=== PATIENT | female | born 1995 | race Caucasian/White ===

== ENCOUNTER 2019-02-21 10:10 | Emergency (ER) | payer MEDICAID ==
[~2019-02-21] VITALS: Ht 160 cm; Wt 46.7 kg
[2019-02-21] MEDS ORDERED: PNV1TABL25 PO (10:21)
[2019-02-21] MEDS ORDERED: ASPI-630 PO (10:21)
[2019-02-21 10:28] LABS: BILIRUBIN,URINE NEGATIVE (NEG); CLARITY,URINE CLEAR; COLOR,URINE YELLOW; NITRITE,URINE NEGATIVE (NEG); PROTEIN,URINE NEGATIVE (NEG-TRACE); UROBILINOGEN,URINE 0.2 mg/dL (0.2 mg/dL)
[2019-02-21 10:42] LABS: AMORPHOUS SEDIMENT,UR PRESENT /HPF; BACTERIA,URINE FEW /HPF (0-FEW); RBC,URINE OCC /HPF (0-2); SQUAMOUS EPITHELIAL CELL,UR MOD /LPF; WBC,URINE OCC /HPF (0-4)
--- NOTE | 2019-02-21 11:31 | RAD ---
STUDY: Obstetrical ultrasound-transvaginal INDICATION: Vaginal bleeding. Known . COMPARISON: None. TECHNIQUE: Real-time grayscale and Doppler imaging of the pelvis utilizing both transabdominal and transvaginal technique. FINDINGS: Intrauterine gestational sac measuring 1.8 x 0.65 x 1.31 cm with a mean sac diameter measured at 1.56 cm. Estimated gestational age based on this measurement of 6 weeks 3 days. A yolk sac is present measuring 0.39 cm. A discrete pole is not seen at this time. No perigestational hemorrhage noted. The uterus itself measures 10 x 4.9 x 5 cm. Unremarkable uterine parenchyma. The right ovary measures 3 x 1.8 x 1.9 cm. The left ovary measures 3.1 x 1.3 x 2.1 cm. Normal Doppler flow maintained to both ovaries. Trace free fluid seen within the deep pelvis. The fluid appears simple in echotexture. IMPRESSION: 1. Intrauterine gestational sac with a mean sac diameter corresponding to an estimate a gestational age of 6 weeks 3 days. A yolk sac is identified but a pole is not seen at this time. This is not an unexpected finding given the measured dimensions of the gestational sac however given patient's symptoms, short-term follow-up such as in 7-14 days is recommended to document expected evolution of a viable . 2. Maintained Doppler flow to both ovaries. 3. Trace simple appearing free fluid within the deep pelvis. Electronically signed by: JACK CERNA MD (02/21/2019 11:28 AM) [facility]
--- NOTE | 2019-02-21 11:34 | PHYS DOC ---
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 She states he is , her LMP was 01/08/19 and her EDC is 10/15/19. She denies any pelvic pain, back pain, or irregular vaginal discharge prior to the onset of spotting. She denies any recent trauma or intercourse. Pt denies any pain at this time. Review of Systems Review of Systems Constitutional: Denies fever or chills [] Eyes: Denies redness, or eye pain [] HENT: Denies nasal congestion or sore throat [] Respiratory: Denies cough or shortness of breath [] Cardiovascular: No additional information not addressed in HPI [] GI: Denies abdominal pain, nausea, vomiting, or diarrhea [] : Denies dysuria or hematuria; see HPI [] Musculoskeletal: Denies back pain or joint pain [] Integument: Denies rash or skin lesions [] Neurologic: Denies headache, focal weakness or sensory changes [] Complete systems were reviewed and found to be within normal limits, except as documented in this note. Allergies Allergies Allergies Coded Allergies Type Severity Reaction Last Updated Verified Sulfa (Sulfonamide Antibiotics) Allergy Intermediate hives 02/21/19 Yes Physical Exam Physical Exam Constitutional: Well developed, well nourished, no acute distress, non-toxic appearance. [] HENT: Normocephalic, atraumatic, bilateral external ears normal, oropharynx moist, no oral exudates, nose normal. [] Eyes: PERRLA, EOMI, conjunctiva normal, no discharge. [] Neck: Normal range of motion, no tenderness, supple, no stridor. [] Cardiovascular:Heart rate regular rhythm, no murmur [] Lungs & Thorax: Bilateral breath sounds clear to auscultation [] Abdomen: Bowel sounds normal, soft, no tenderness, no masses, no pulsatile masses. [] Skin: Warm, dry, no erythema, no rash. [] Back: No tenderness, no CVA tenderness. [] Extremities: No tenderness, no cyanosis, no clubbing, ROM intact, no edema. [] Neurologic: Alert and oriented X 3, normal motor function, normal sensory function, no focal deficits noted. [] Psychologic: Affect normal, judgement normal, mood normal. [] Current Patient Data Vital Signs Vital Signs Date Time Temp Pulse Resp B/P (MAP) Pulse Ox O2 Delivery O2 Flow Rate FiO2 02/21/19 10:10 98.2 70 16 101/55 (70) 100 Room Air 98.2 Lab Values Laboratory Tests Test 02/21/19 10:18 02/21/19 11:30 Urine Collection Type Unknown Urine Color Yellow Urine Clarity Clear Urine pH 7.0 Urine Specific [place] 1.015 Urine Protein Negative mg/dL (NEG-TRACE) Urine Glucose (UA) Negative mg/dL (NEG) Urine Ketones (Stick) 15 mg/dL (NEG) Urine Blood Negative (NEG) Urine Nitrite Negative (NEG) Urine Bilirubin Negative (NEG) Urine Urobilinogen Dipstick 0.2 mg/dL (0.2 mg/dL) Urine Leukocyte Esterase Negative (NEG) Urine RBC Occ /HPF (0-2) Urine WBC Occ /HPF (0-4) Urine Squamous Epithelial Cells Mod /LPF Urine Amorphous Sediment Present /HPF Urine Bacteria Few /HPF (0-FEW) Urine Mucus Marked /LPF White Blood Count 8.3 x10^3/uL (4.0-11.0) Red Blood Count 4.50 x10^6/uL (3.50-5.40) Hemoglobin 13.6 g/dL (12.0-15.5) Hematocrit 41.0 % (36.0-47.0) Mean Corpuscular Volume 91 fL (79-100) Mean Corpuscular Hemoglobin 30 pg (25-35) Mean Corpuscular Hemoglobin Concent 33 g/dL (31-37) Red Cell Distribution Width 13.3 % (11.5-14.5) Platelet Count 175 x10^3/uL (140-400) Neutrophils (%) (Auto) 72 % (31-73) Lymphocytes (%) (Auto) 21 % (24-48) L Monocytes (%) (Auto) 5 % (0-9) Eosinophils (%) (Auto) 2 % (0-3) Basophils (%) (Auto) 1 % (0-3) Neutrophils # (Auto) 5.9 x10^3/uL (1.8-7.7) Lymphocytes # (Auto) 1.7 x10^3/uL (1.0-4.8) Monocytes # (Auto) 0.4 x10^3/uL (0.0-1.1) Eosinophils # (Auto) 0.2 x10^3/uL (0.0-0.7) Basophils # (Auto) 0.0 x10^3/uL (0.0-0.2) Maternal Serum HCG Beta Subunit 85527 mIU/mL (0-5) H Laboratory Tests 02/21/19 11:30 EKG EKG [] Radiology/Procedures Radiology/Procedures PROCEDURE: OB TRANSVAG STUDY: Obstetrical ultrasound-transvaginal INDICATION: Vaginal bleeding. Known . COMPARISON: None. TECHNIQUE: Real-time grayscale and Doppler imaging of the pelvis utilizing both transabdominal and transvaginal technique. FINDINGS: Intrauterine gestational sac measuring 1.8 x 0.65 x 1.31 cm with a mean sac diameter measured at 1.56 cm. Estimated gestational age based on this measurement of 6 weeks 3 days. A yolk sac is present measuring 0.39 cm. A discrete pole is not seen at this time. No perigestational hemorrhage noted. The uterus itself measures 10 x 4.9 x 5 cm. Unremarkable uterine parenchyma. The right ovary measures 3 x 1.8 x 1.9 cm. The left ovary measures 3.1 x 1.3 x 2.1 cm. Normal Doppler flow maintained to both ovaries. Trace free fluid seen within the deep pelvis. The fluid appears simple in echotexture. IMPRESSION: 1. Intrauterine gestational sac with a mean sac diameter corresponding to an estimate a gestational age of 6 weeks 3 days. A yolk sac is identified but a pole is not seen at this time. This is not an unexpected finding given the measured dimensions of the gestational sac however given patient's symptoms, short-term follow-up such as in 7-14 days is recommended to document expected evolution of a viable . 2. Maintained Doppler flow to both ovaries. 3. Trace simple appearing free fluid within the deep pelvis.[] Course & Med Decision Making Course & Med Decision Making Pertinent Labs and Imaging studies reviewed. (See chart for details) dx: threatened miscarriage, vaginal bleeding in early . PT's blood type [place] O positive, [place] [address] U/S revealed: 1. Intrauterine gestational sac with a mean sac diameter co rresponding to an estimate a gestational age of 6 weeks 3 days. A yolk sac is identified but a pole is not seen at this time. This is not an unexpected finding given the measured dimensions of the gestational sac however given patient's symptoms, short-term follow-up such as in 7-14 days is recommended to document expected evolution of a viable . 2. Maintained Doppler flow to both ovaries. 3. Trace simple appearing free fluid within the deep pelvis.[] []Follow up with Dr. Alvarez on Saturday for repeat HCG level. pelvic rest until follow up. Return to the ER if symptoms worsen. Patient verbalized an understanding of home care, medications, follow-up, and return to ED instructions and was in agreement with the plan of care. Dragon Disclaimer Dragon Disclaimer This electronic medical record was generated, in whole or in part, using a voice recognition dictation system. Departure Departure Impression: Primary Impression: Threatened in first trimester Disposition: 01 HOME, SELF-CARE Condition: STABLE Referrals: KINJAL ALVAREZ Jr, MD Patient Instructions: Threatened Miscarriage, [id number], Vaginal Bleeding During , First Trimester Additional Instructions: Pelvic rest until follow-up with Dr. Alvarez's office. Schedule an appointment with his office in 48 hours to have your HCG level rechecked, it [place] [address] in the ER today. Return to the ER if symptoms worsen. GEE GARNICA APRN Feb 21, 2019 11:34
[2019-02-21 11:58] LABS: BASO % 1 % (0-3); EOS # 0.2 x10^3/uL (0.0-0.7); EOS % 2 % (0-3); HEMOGLOBIN 13.6 g/dL (12.0-15.5); LYMPH # 1.7 x10^3/uL (1.0-4.8); LYMPH % 21 % (24-48); MEAN CORPUSCULAR HEMOGLOBIN 30 pg (25-35); MEAN CORPUSCULAR HGB CONC 33 g/dL (31-37); MEAN CORPUSCULAR VOLUME 91 fL (79-100); MONO # 0.4 x10^3/uL (0.0-1.1); MONO % 5 % (0-9); NEUT # 5.9 x10^3/uL (1.8-7.7); NEUT % 72 % (31-73); PLATELET COUNT 175 x10^3/uL (140-400); RED CELL DISTRIBUTION WIDTH 13.3 % (11.5-14.5); WHITE BLOOD COUNT 8.3 x10^3/uL (4.0-11.0)
[2019-02-21 12:59] VITALS: BP 90/50
== END 2019-02-21 13:04 | disposition home or self-care (01) ==
LOC: ER 10:10
DX: O20.0 Threatened abortion (principal); Z86.73 Personal history of transient ischemic attack (TIA), and cerebral infarction without residual deficits; Z3A.01 Less than 8 weeks gestation of pregnancy
CPT/HCPCS: 36415; 76817; 81001; 84702; 85025; 86900; 86901; 99285-25

== ENCOUNTER → 2019-05-29 | Outpatient (CLI) | payer MEDICAID ==
[~2019-05-29] MED LIST: ASPI-630 PO; PNV1TABL25 PO
--- NOTE | 2019-05-29 09:01 | RAD ---
Clinical indications: Size and date discrepancy. Findings: A single intrauterine fetus is seen in variable position. heart rate is 147 beats per minute. BPD is 4.4 cm which equals 19 weeks 2 days. HC is 17.0 cm which equals 19 weeks 4 days. AC is 14.2 cm which equals 19 weeks 4 days. FL is 3.1 cm which equals 19 weeks 4 days. Average gestational age by ultrasound is 19 weeks 4 days +/- 12 days with an EDC of October 19, 2019. EDC by LMP is October 15, 2019. EDC by previous sonogram dated February 21, 2019 is October 14, 2019. Therefore, there has been normal interval growth. Estimated weight is 0 lbs and 11 oz. A four-chamber heart and three-vessel cord are identified. stomach and urinary bladder are identified. kidneys are unremarkable. Cord insertion site is unremarkable. The intracranial structures and spine are morphologically normal in appearance. The ventricular trigone measurement is 5.6 mm. Cisterna magna measurement is 5.6 mm. Four extremities are identified. GONZALEZ using the four quadrant method is 12.2 cm. Cervical length is 4.2 cm. A grade 0 posterior placenta is seen. No placenta previa and no placenta abruptio is identified. The maternal ovaries are not visualized. Impression: Single IUP with gestational age of 19 weeks 4 days. Electronically signed by: Ector Garcia MD (05/29/2019 8:58 AM) [facility]
== END | disposition home or self-care (01) ==
LOC: US 06:22
PROVIDERS: ATTEND Obstetrics & Gynecology
DX: O26.842 Uterine size-date discrepancy, second trimester (principal); Z3A.19 19 weeks gestation of pregnancy
CPT/HCPCS: 76805

== ENCOUNTER 2019-06-27 15:33 | Observation (INO) | payer MEDICAID ==
[~2019-06-27] VITALS: Ht 160 cm; Wt 51.7 kg
[2019-06-27] MEDS ORDERED: IV RINGERS,LACTATED 1000ML 1,000 ML IV SCH (15:39)
[2019-06-27 15:55] LABS: BILIRUBIN,URINE NEGATIVE (NEG); CLARITY,URINE CLOUDY; COLOR,URINE YELLOW; NITRITE,URINE NEGATIVE (NEG); PROTEIN,URINE NEGATIVE (NEG-TRACE); UROBILINOGEN,URINE 0.2 mg/dL (0.2 mg/dL)
[2019-06-27 16:03] LABS: SQUAMOUS EPITHELIAL CELL,UR MOD /LPF
[2019-06-27 16:04] LABS: BACTERIA,URINE MODERATE /HPF (0-FEW)
== END 2019-06-27 17:11 | disposition home or self-care (01) ==
LOC: 3 SO LND 15:33
PROVIDERS: ADMIT Obstetrics & Gynecology; ATTEND Obstetrics & Gynecology
DX: O26.892 Other specified pregnancy related conditions, second trimester (principal); R10.9 Unspecified abdominal pain; N89.8 Other specified noninflammatory disorders of vagina; Z3A.24 24 weeks gestation of pregnancy
CPT/HCPCS: 81001; 87086; G0378; G0379

== ENCOUNTER 2019-07-06 08:53 | Emergency (ER) | payer MEDICAID ==
[~2019-07-06] VITALS: Ht 160 cm; Wt 52.0 kg
--- NOTE | 2019-07-06 09:06 | PHYS DOC ---
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 Patient states she was waking on parking lot of her neighborhood and slipped on ice and had a fall and landed on her right side without loss of consciousness or head injury. Patient complaining of right hip pain without abdominal pain, vaginal bleeding, nausea and vomiting, focal neuro deficit. Patient was able to ambulate without problem and rated her pain 8/10 and doesn't want to have pain medication. Review of Systems Review of Systems Constitutional: Denies fever or chills [] Eyes: Denies change in visual acuity, redness, or eye pain [] HENT: Denies nasal congestion or sore throat [] Respiratory: Denies cough or shortness of breath [] Cardiovascular: No additional information not addressed in HPI [] GI: Denies abdominal pain, nausea, vomiting, bloody stools or diarrhea [] : Denies dysuria or hematuria [] Musculoskeletal: Denies back pain, reports joint pain [] Integument: Denies rash or skin lesions [] Neurologic: Denies headache, focal weakness or sensory changes [] Endocrine: Denies polyuria or polydipsia [] All other systems were reviewed and found to be within normal limits, except as documented in this note. Allergies Allergies Allergies Coded Allergies Type Severity Reaction Last Updated Verified Sulfa (Sulfonamide Antibiotics) Allergy Intermediate hives 07/06/19 Yes Physical Exam Physical Exam Constitutional: Well developed, well nourished, mild distress, non-toxic appearance. [] HENT: Normocephalic, atraumatic. Eyes: PERRLA, EOMI, conjunctiva normal, no discharge. [] Neck: Normal range of motion, no tenderness, supple, no stridor. [] Cardiovascular:Heart rate regular rhythm, no murmur [] Lungs & Thorax: Bilateral breath sounds clear to auscultation [] Abdomen: Gravid abdomen, tenderness or contusion, bowel sounds normal, soft, no masses, no pulsatile masses. [] Skin: Warm, dry, no erythema, no rash. [] Back: No tenderness, no CVA tenderness. [] Extremities: Right hip without sign of injury: Normal range of motion, no neurovascular deficit no edema. [] Neurologic: Alert and oriented X 3, no focal deficits noted. [] Psychologic: Affect normal, judgement normal, mood normal. [] Current Patient Data Vital Signs Vital Signs Date Time Temp Pulse Resp B/P (MAP) Pulse Ox O2 Delivery O2 Flow Rate FiO2 07/06/19 10:16 74 18 98 07/06/19 08:53 98.4 105/65 (78) Room Air 98.4 EKG EKG [] Radiology/Procedures Radiology/Procedures [facility] [address] [place] [address] IMAGING REPORT Signed PATIENT: LYNN CROUCH LACCOUNT: [id number] : 1995 LOCATION: ER AGE: 24 SEX: F EXAM STATUS: REG ER ORD. PHYSICIAN: NANCY VILLALPANDO MD REASON: fall on ice, 25 weeks PROCEDURE: OB LIMITED EXAM: Obstetrics sonogram. HISTORY: Fall. TECHNIQUE: Sonographic imaging of a gravid uterus was performed. COMPARISON: 05/29/2019. FINDINGS: There is a single intrauterine fetus in breech presentation with a normal heart rate of 153 bpm. The cervix is closed and measures 4.5 cm in length. There is a posterior grade 1 placenta without evidence of placenta previa or placental abruption. The amniotic fluid index is grossly normal. The biparietal diameter is 5.81 cm, corresponding with 23 weeks and 6 days. The head circumference is 22.35 cm, corresponding with 24 weeks and 3 days. The abdominal circumference is 21.08 cm, corresponding with 25 weeks and 4 days. The femoral length is 4.68 cm, corresponding with 25 weeks and 4 days. Note is made that the biparietal diameter is overestimated on the initial measurement to correspond with a gestational age of 27 weeks and 0 days. This is remeasured to correspond with a gestational age of 23 weeks and 6 days. The estimated gestational age patient combined ultrasound measurements is 24 weeks and 6 days and the estimated weight is 803 g. This corresponds with the 46th percentile for gestational age of 25 weeks and 4 days based on LMP. The estimated due date is 10/20/2019. IMPRESSION: Single intrauterine fetus in breech presentation with a normal heart rate and gestational age based on ultrasound measurements of 24 weeks and 6 days. The anatomy is not formally assessed on this exam. Electronically signed by: Umm Mota MD (07/06/2019 9:43 AM) [facility] [place], [place] DICTATED and SIGNED BY: UMM MOTA MD DATE: 07/06/19 0943 Course & Med Decision Making Course & Med Decision Making Pertinent Imaging studies reviewed. (See chart for details) Evaluation of patient in ER showed 24-year-old female patient at 25 weeks of gestation with a fall and injury to right hip. Patient had unremarkable physical exam. OB ultrasound was unremarkable. Patient didn't want to have pain medica tion in ER. Plan to send patient to L&D for NST. I've spoken with the patient and/or caregivers. I've explained the patient's condition, diagnosis and treatment plan based on information available to me at this time. I've answered the patient's and/or caregivers questions and addressed any concerns. The patient and/or caregivers have a good understanding the billy ent's diagnosis, condition and treatment plan as can be expected at this point. Vital signs have been stabilized. The patient's condition is stable for discharge from the emergency department. The patient will pursue further outpatient evaluation with her primary care provider or other designated consulting physician as outlined in the discharge instructions. Patient and/or caregivers are agreeable to this plan of care and follow-up instructions have been explained in detail. The patient and/or caregivers have received these instructions in written format and expressed understanding of these discharge instructions. The patient and her caregivers are aware that if any significant change in condition or worsening of symptoms should prompt him to immediately return to this of the closest emergency department. If an emergent department is not readily available I would encourage him to call 911. Jcarlos Disclaimer Nirmalon Disclaimer This electronic medical record was generated, in whole or in part, using a voice recognition dictation system. Departure Departure Impression: Primary Impression: Fall due to ice or snow Additional Impressions: Currently Hip pain Disposition: HOME, SELF-CARE (at 1010) Condition: STABLE Referrals: NO PCP (PCP) Patient Instructions: ABCs of , Fall Prevention and Home Safety, Hip Pain Additional Instructions: Drink plenty of liquids Follow-up with your [facility] physician after discharging from ER, we will send you to L&D floor Return to ER if not getting better Take [id number] Tylenol as needed for pain Problem Qualifiers Primary Impression: Fall due to ice or snow Encounter type: initial encounter Qualified Codes: W00.9XXA - Unspecified fall due to ice and snow, initial encounter Additional Impressions: Currently Weeks of gestation: 25 weeks Qualified Codes: Z3A.25 - 25 weeks gestation of Hip pain Laterality: right Qualified Codes: M25.551 - Pain in right hip NANCY VILLALPANDO MD Jul 06, 2019 09:06
--- NOTE | 2019-07-06 09:46 | RAD ---
EXAM: Obstetrics sonogram. HISTORY: Fall. TECHNIQUE: Sonographic imaging of a gravid uterus was performed. COMPARISON: 05/29/2019. FINDINGS: There is a single intrauterine fetus in breech presentation with a normal heart rate of 153 bpm. The cervix is closed and measures 4.5 cm in length. There is a posterior grade 1 placenta without evidence of placenta previa or placental abruption. The amniotic fluid index is grossly normal. The biparietal diameter is 5.81 cm, corresponding with 23 weeks and 6 days. The head circumference is 22.35 cm, corresponding with 24 weeks and 3 days. The abdominal circumference is 21.08 cm, corresponding with 25 weeks and 4 days. The femoral length is 4.68 cm, corresponding with 25 weeks and 4 days. Note is made that the biparietal diameter is overestimated on the initial measurement to correspond with a gestational age of 27 weeks and 0 days. This is remeasured to correspond with a gestational age of 23 weeks and 6 days. The estimated gestational age patient combined ultrasound measurements is 24 weeks and 6 days and the estimated weight is 803 g. This corresponds with the 46th percentile for gestational age of 25 weeks and 4 days based on LMP. The estimated due date is 10/20/2019. IMPRESSION: Single intrauterine fetus in breech presentation with a normal heart rate and gestational age based on ultrasound measurements of 24 weeks and 6 days. The anatomy is not formally assessed on this exam. Electronically signed by: Umm Mota MD (07/06/2019 9:43 AM) [facility] [place]
[2019-07-06 10:16] VITALS: BP 99/56
[2019-07-06] MEDS ORDERED: IV RINGERS,LACTATED 1000ML 1,000 ML IV PRN (10:30)
== END 2019-07-06 10:16 | disposition home or self-care (01) ==
LOC: ER 08:53 → 3 SO LND 10:16 → UNDOADMOB 10:16
DX: O99.89 Other specified diseases and conditions complicating pregnancy, childbirth and the puerperium (principal); M25.551 Pain in right hip; G89.11 Acute pain due to trauma; Z86.73 Personal history of transient ischemic attack (TIA), and cerebral infarction without residual deficits; Z3A.25 25 weeks gestation of pregnancy; Z88.2 Allergy status to sulfonamides; W00.9XXA Unspecified fall due to ice and snow, initial encounter; Y93.89 Activity, other specified; Y92.89 Other specified places as the place of occurrence of the external cause; Y99.8 Other external cause status
CPT/HCPCS: 76815; 99284-25

== ENCOUNTER 2019-07-25 12:58 | Observation (INO) | payer MEDICAID ==
[2019-07-25] MEDS ORDERED: IV RINGERS,LACTATED 1000ML 1,000 ML IV SCH (13:06)
[2019-07-25] MEDS ORDERED: ONDANSETRON PF 4 MG/2 ML VIAL. IV PRN (13:15)
[2019-07-25] MEDS ORDERED: ACETAMINOPHEN 325 MG TABLET. PO PRN (13:15)
[2019-07-25 13:48] LABS: BILIRUBIN,URINE NEGATIVE (NEG); CLARITY,URINE CLEAR; COLOR,URINE YELLOW; NITRITE,URINE NEGATIVE (NEG); PH,URINE 7.5; PROTEIN,URINE NEGATIVE (NEG-TRACE); UROBILINOGEN,URINE 0.2 mg/dL (0.2 mg/dL)
[2019-07-25 13:55] LABS: BARBITURATES NEG (NEG); BENZODIAZEPINES NEG (NEG); CANNABINOIDS NEG (NEG); COCAINE NEG (NEG); METHADONE NEG (NEG); OPIATES NEG (NEG); PHENCYCLIDINE NEG (NEG)
[2019-07-25 14:03] LABS: AMPHETAMINE/METHAMPHETAMINE NEG (NEG)
[2019-07-25 14:16] LABS: BACTERIA,URINE FEW /HPF (0-FEW); RBC,URINE 0 /HPF (0-2); SQUAMOUS EPITHELIAL CELL,UR FEW /LPF; WBC,URINE OCC /HPF (0-4)
== END 2019-07-25 15:30 | disposition home or self-care (01) ==
LOC: 3 SO LND 12:58
PROVIDERS: ADMIT Obstetrics & Gynecology; ATTEND Obstetrics & Gynecology
DX: O62.9 Abnormality of forces of labor, unspecified (principal); Z3A.27 27 weeks gestation of pregnancy
CPT/HCPCS: 80307; 81001; G0378; G0379

== ENCOUNTER 2019-08-19 16:46 | Observation (INO) | payer MEDICAID ==
[2019-08-19] MEDS ORDERED: IV RINGERS,LACTATED 1000ML 1,000 ML IV PRN (17:00)
[2019-08-19 17:19] LABS: BILIRUBIN,URINE NEGATIVE (NEG); CLARITY,URINE CLEAR; COLOR,URINE YELLOW; NITRITE,URINE NEGATIVE (NEG); PH,URINE 5.5 (<5.0-8.0); PROTEIN,URINE NEGATIVE (NEG-TRACE)
[2019-08-19 17:25] LABS: BACTERIA,URINE FEW /HPF (0-FEW); RBC,URINE OCC /HPF (0-2); SQUAMOUS EPITHELIAL CELL,UR FEW /LPF
== END 2019-08-19 18:01 | disposition home or self-care (01) ==
LOC: 3 SO LND 16:46
PROVIDERS: ADMIT Obstetrics & Gynecology; ATTEND Obstetrics & Gynecology
DX: O26.893 Other specified pregnancy related conditions, third trimester (principal); R10.2 Pelvic and perineal pain; Z3A.31 31 weeks gestation of pregnancy
CPT/HCPCS: 81001; G0378; G0379

== ENCOUNTER 2019-09-04 19:01 | Observation (INO) | payer MEDICAID ==
[2019-09-04 19:27] LABS: BILIRUBIN,URINE NEGATIVE (NEG); CLARITY,URINE CLEAR; COLOR,URINE YELLOW; NITRITE,URINE NEGATIVE (NEG); PROTEIN,URINE NEGATIVE (NEG-TRACE)
[2019-09-04] MEDS ORDERED: IV RINGERS,LACTATED 1000ML 1,000 ML IV SCH (19:30)
[2019-09-04 19:35] LABS: AMPHETAMINE/METHAMPHETAMINE NEG (NEG); BARBITURATES NEG (NEG); BENZODIAZEPINES NEG (NEG); CANNABINOIDS NEG (NEG); COCAINE NEG (NEG); METHADONE NEG (NEG); OPIATES NEG (NEG); PHENCYCLIDINE NEG (NEG)
[2019-09-04 19:39] LABS: SQUAMOUS EPITHELIAL CELL,UR FEW /LPF
[2019-09-04 19:40] LABS: AMORPHOUS SEDIMENT,UR PRESENT /HPF; BACTERIA,URINE 0 /HPF (0-FEW); RBC,URINE 0 /HPF (0-2)
[2019-09-04 22:37] VITALS: BP 110/67
[2019-09-04] MEDS ORDERED: TERBUTALINE 1 MG/ML VIAL. SQ ONE (23:00)
== END 2019-09-04 22:44 | disposition home or self-care (01) ==
LOC: 3 SO LND 19:01
PROVIDERS: ADMIT Obstetrics & Gynecology; ATTEND Obstetrics & Gynecology
DX: O26.893 Other specified pregnancy related conditions, third trimester (principal); R10.2 Pelvic and perineal pain; Z3A.34 34 weeks gestation of pregnancy
CPT/HCPCS: 80307; 81001; 96372; G0378; G0379; J3105; J7120

== ENCOUNTER 2019-09-19 11:18 | Observation (INO) | payer MEDICAID ==
[2019-09-19] MEDS ORDERED: IV RINGERS,LACTATED 1000ML 1,000 ML IV PRN (11:30)
[2019-09-19 11:44] LABS: BILIRUBIN,URINE NEGATIVE (NEG); CLARITY,URINE CLEAR; COLOR,URINE YELLOW; NITRITE,URINE NEGATIVE (NEG); PH,URINE 8.5 (<5.0-8.0); PROTEIN,URINE NEGATIVE (NEG-TRACE)
[2019-09-19 11:57] LABS: BACTERIA,URINE 0 /HPF (0-FEW); RBC,URINE 0 /HPF (0-2); SQUAMOUS EPITHELIAL CELL,UR MOD /LPF; WBC,URINE OCC /HPF (0-4)
== END 2019-09-19 12:37 | disposition home or self-care (01) ==
LOC: 3 SO LND 11:18
PROVIDERS: ADMIT Obstetrics & Gynecology; ATTEND Obstetrics & Gynecology
DX: O26.853 Spotting complicating pregnancy, third trimester (principal); Z3A.36 36 weeks gestation of pregnancy
CPT/HCPCS: 81001; G0378; G0379

== ENCOUNTER 2019-10-05 21:49 | Observation (INO) | payer MEDICAID ==
[2019-10-05] MEDS ORDERED: IV RINGERS,LACTATED 1000ML 1,000 ML IV SCH (21:51)
[2019-10-05] MEDS ORDERED: ACETAMINOPHEN 500 MG TABLET PO PRN (22:00)
[2019-10-05 22:46] LABS: BILIRUBIN,URINE NEGATIVE (NEG); CLARITY,URINE CLEAR; COLOR,URINE YELLOW; NITRITE,URINE NEGATIVE (NEG); PH,URINE 6.5 (<5.0-8.0); PROTEIN,URINE NEGATIVE (NEG-TRACE)
[2019-10-05 22:53] LABS: BARBITURATES NEG (NEG); BENZODIAZEPINES NEG (NEG); CANNABINOIDS NEG (NEG); COCAINE NEG (NEG); METHADONE NEG (NEG); OPIATES NEG (NEG); PHENCYCLIDINE NEG (NEG)
[2019-10-05 22:54] LABS: BACTERIA,URINE 0 /HPF (0-FEW); RBC,URINE 0 /HPF (0-2); SQUAMOUS EPITHELIAL CELL,UR FEW /LPF; WBC,URINE 0 /HPF (0-4)
[2019-10-05 23:00] LABS: AMPHETAMINE/METHAMPHETAMINE NEG (NEG)
== END 2019-10-05 23:28 | disposition home or self-care (01) ==
LOC: 3 SO LND 21:49
PROVIDERS: ADMIT Obstetrics & Gynecology; ATTEND Obstetrics & Gynecology
DX: O62.9 Abnormality of forces of labor, unspecified (principal); Z3A.38 38 weeks gestation of pregnancy; Z79.899 Other long term (current) drug therapy
CPT/HCPCS: 80307; 81001; G0378; G0379

== ENCOUNTER 2019-10-11 19:42 | Observation (INO) | payer MEDICAID ==
[2019-10-11] MEDS ORDERED: IV RINGERS,LACTATED 1000ML 1,000 ML IV SCH (19:47)
[2019-10-11] MEDS ORDERED: ACETAMINOPHEN 500 MG TABLET PO PRN (20:00)
[2019-10-11 20:04] LABS: BILIRUBIN,URINE NEGATIVE (NEG); CLARITY,URINE CLEAR; COLOR,URINE YELLOW; NITRITE,URINE NEGATIVE (NEG); PROTEIN,URINE NEGATIVE (NEG-TRACE); UROBILINOGEN,URINE 0.2 mg/dL (0.2 mg/dL)
[2019-10-11 20:08] LABS: BACTERIA,URINE 0 /HPF (0-FEW); RBC,URINE OCC /HPF (0-2)
[2019-10-11 20:09] LABS: SQUAMOUS EPITHELIAL CELL,UR FEW /LPF
== END 2019-10-12 00:32 | disposition home or self-care (01) ==
LOC: 3 SO LND 19:42
PROVIDERS: ADMIT Obstetrics & Gynecology; ATTEND Obstetrics & Gynecology
DX: O62.9 Abnormality of forces of labor, unspecified (principal); Z3A.39 39 weeks gestation of pregnancy
CPT/HCPCS: 81001; G0378; G0379